=== PATIENT | female | born 1945 | race Caucasian/White ===

== ENCOUNTER → 2024-04-16 | Outpatient (CLI) | payer MEDICARE | LOC: LAB 12:04 → LAB SHORT 12:04 | DX: R41.89 Other symptoms and signs involving cognitive functions and awareness (principal) | CPT/HCPCS: 36415; 82607; 82746; 85651 ==

== ENCOUNTER 2024-11-02 14:39 | Emergency (ER) | payer MEDICARE ==
[~2024-11-02] VITALS: Ht 165.1 cm; Wt 88.9 kg
[2024-11-02 16:34] LABS: INFLUENZA A AG Negative (NEGATIVE); INFLUENZA B AG Negative (NEGATIVE)
[2024-11-02 16:35] LABS: CORONAVIRUS COVID-19 AG Negative (NEGATIVE)
[2024-11-02] MEDS ORDERED: Amoxicillin500 MG PO (17:44)
== END 2024-11-02 17:56 | disposition home or self-care (01) ==
LOC: ER 14:39
PROVIDERS: Physician Assistant
DX: J32.9 Chronic sinusitis, unspecified (principal); Z88.5 Allergy status to narcotic agent
CPT/HCPCS: 71046; 87428-QW; 99283-25